=== PATIENT | male | born 1960 | race Caucasian/White ===

== ENCOUNTER 2019-11-15 03:54 | Inpatient (IN) | payer OTHER, SELFPAY ==
[2019-11-15] VITALS (21 sets, daily range): BP systolic 92–159; BP diastolic 57–90; PULSE 72–96; RESP 14–20; TEMP 36.3–37; O2SAT 96–99
--- NOTE | 2019-11-15 04:00 | DI.CT_ITS ---
EXAM: CT ABDOMEN PELVIS W CLINICAL HISTORY: right lower abdominal pain TECHNIQUE: Imaging Protocol: Axial computed tomography images with coronal and sagittal reformatted images were created and reviewed CONTRAST MATERIAL: Intravenous: Omnipaque 350 Contrast volume:100 mL Oral: No COMPARISON: No exams were available for comparison FINDINGS: ABDOMEN: Lung Bases: Normal where visualized. Liver: Normal density. There is an 8 mm hypodense lesion in the anterior segment of the right lobe of the liver. It is not definitely cystic. A follow-up hepatic ultrasound should be considered for fu rther evaluation. Portal, Superior Mesenteric, and Splenic Veins: Unremarkable. Gallbladder and Biliary Tract: No radiodense calculus or dilation. Pancreas: Normal density, no abnormal calcifications or inflammatory process. Spleen: Normal. Adrenals: No masses seen. Kidneys: Normal size, contour and axis. Nonobstructing stones seen in the lower pole of the left kidn ey. Tiny hypodensities in the right kidney. They are too small for further characterization but lik jayla reflect small cysts. Abdominal Aorta: Abdominal portion non-dilated. Atherosclerosis. Bowel: No obstruction or bowel wall thickening. There is an air-filled appendix in the right lower qu adrant. The distal appendix measures up to 6-7 mm in diameter and contains high density material whi ch may reflect appendicoliths. No periappendiceal inflammatory changes are seen. No abscess is iden tified. Peritoneal Cavity: No ascites, collection or mesenteric inflammatory response. Lymph Nodes: Within normal limits. Bones: Mild degenerative changes are present. Soft Tissues: Bilateral fat containing inguinal hernia. PELVIS: Bladder: Symmetric distention, no gross wall thickening. Reproductive Organs: Unremarkable as visualized. Lymph Nodes: Within normal limits. Bones: Degenerative changes are present. IMPRESSION: 1. Upper limits of normal in size of the appendix. High density material seen in the distal appendix suggesting appendicoliths. No definite associated inflammatory change or abscess is appreciated. P lease correlate clinically. 2. Nonobstructing left renal calculi. 3. 8 mm hypodense hepatic lesion. Hepatic ultrasound recommended for further evaluation. RADIATION DOSE DELIVERED: DATA REPOSITORY: All CT scans at this facility are submitted to the National Radiology Data Registry (NRDR) Dose Index Registry (DIR) with the [employer] (A[employer]). RADIATION OPTIMIZATION: All CT scans at this facility use at least one of these dose optimization te chniques: automated exposure control; mA and/or kV adjustment per patient size (includes targeted exa ms where dose is matched to clinical indication); or iterative reconstruction.
--- NOTE | 2019-11-15 04:01 | W.ED.GENAD ---
Discharge Plan Disposition Patient Disposition: [facility] INPATIENT Condition: Stable Discharge Details Chief Complaint: Abd Prob Clinical Impression: Acute appendicitis ED Provider: Corey Galindo Home Meds and New Rx's Prescriptions: No Action losartan 25 mg Tablet 25 mg PO DAILY RF: 0 ranitidine HCl 150 mg Capsule 150 mg PO DAILY RF: 0 Medical Decision Making 59 yo male with hx of htn and gerd and no prior abdominal surgeries comes in with cc of right lower abdominal pain starting about 3 hours ago. Has never had pain like this in the past and denies vomit, fevers, cough, testicle pain or dysuria. On exam has no upper abdominal tenderness but is tender in the right lower abdomen. Will obtain labs and imaging to eval for pancreatitis, appendicitis and diverticulitis among other pathology pt's labs unremarkable and CT shows appenicoliths in distal appendix with borderline calibery per vrad. He is still having significant tenderness in the rlq. [facility] and pt prefers this. Spoke with Dr. Joshi who accepts for admission Differential Diagnosis Differential Diagnosis: appendicitis diverticulitis, colitis Imaging Data Radiologic Study: Attestation: I personally reviewed and interpreted this imaging study as follows: Imaging: CT Scan Radiologist's impression: IMPRESSION: Question mineral versus appendicoliths in the distal appendix with borderline caliber. No definite surrounding inflammatory change. Close clinical correlation recommended Faint nonobstructing left renal calculi Small fat containing inguinal hernias without CT evidence for incarceration Lab Data Lab results reviewed: Yes I reviewed the patient's lab results. HPI General Mode of arrival: ambulatory. Date/Time Provider Initiated Documentation: 11/15/19 03:55. Limitations to Documentation: no limitations. Information obtained by: patient. History of Present Illness 59 year old M presents to the emergency department with the chief complaint of right lower abdominal pain, described as moderate and severe, with intensity rated at 8. Quality is described as sharp, Patient reports no radiation. Patient started experiencing this hour(s) (3) and it has been constant. No relieving factors improve symptom(s), No exacerbating factors reported . Patient notes no other symptoms.. Patient did receive the following treatments prior to arrival, none Related Data Home Medications Medication Instructions Recorded Confirmed losartan 25 mg PO DAILY 11/15/19 11/15/19 ranitidine HCl 150 mg PO DAILY 11/15/19 11/15/19 Allergies Allergy/AdvReac Type Severity Reaction Status Date / Time ketoconazole AdvReac Unverified 11/15/19 04:07 omeprazole AdvReac Unverified 11/15/19 04:06 Review of Systems All systems reviewed & are unremarkable except as noted in HPI and below Constitutional Constitutional: Denies chills and Denies fever(s) ENT Ears, Nose, Mouth, and Throat: Denies change in voice Cardiovascular Cardiovascular: Denies chest pain and Denies dyspnea Respiratory Respiratory: Denies cough and Denies dyspnea Gastrointestinal Gastrointestinal: Denies nausea and Denies vomiting Genitourinary Genitourinary: Denies dysuria Integumentary/Breasts Skin/Breast: Denies rash [facility] Medical History (Updated 11/15/19 @ 05:09 by Corey Galindo MD) Hypertension (Chronic) Social History Smoking/Tobacco Use Status: Never Alcohol Intake: current Alcohol Intake frequency: a few times a week Alcohol type: beer and hard liquor Substance use type: marijuana Do you feel safe at home: Yes Exam Const General: no acute distress Orientation: alert HENMT Head: normal to inspection Ears: external ears normal General nose exam: external nose normal Mouth: moist mucous membranes Eyes General: appearance normal, both eyes and all related structures Neck Neck: normal visual inspection Resp Effort & Inspection: normal respiratory effort and able to speak in complete sentences Cardio Rate: regular rate GI Palpation: soft and tender Skin General skin exam: no rashes or lesions noted Neuro General: patient alert and patient oriented x3 Extrem General: normal to inspection Psych Mental Status: mental status grossly normal
[2019-11-15] MEDS: Normal Saline 1,000 ML 1000 ML IV (04:11)
[2019-11-15 04:14] LABS: Abs Immature Grans 0.02 k/cumm (0.0-0.09); Absolute Basophil Count 0.02 k/cumm (0.0-0.2); Absolute Eosinophil Count 0.08 k/cumm (0.0-0.7); Absolute Lymphocyte Count 1.91 k/cumm (1.2-3.4); Absolute Monocyte Count 0.67 k/cumm (0.11-0.7); Absolute Neutrophil Count 5.03 k/cumm (1.2-6.7); Basophils % 0.3; HCT 47.7 % (40.0-50.0); HGB 16.2 g/dL (13.5-17.5); Immature Grans % 0.3 %; Lymphocytes % 24.7; Mean Corpuscular Hemoglobin 30.1 pg (27.0-33.0); Mean Corpuscular Volume 88.7 fL (80-95); Mean Platelet Volume 9.4 fL (8.0-11.0); Monocytes % 8.7; Platelet Count 269 x1000/uL (130-400); RBC 5.38 m/cumm (4.50-6.00); RBC Distribution Width 13.4 % (11.8-14.1); White Blood Cell Count 7.73 k/cumm (4.4-10.8)
[2019-11-15 04:18] LABS: Bilirubin Negative (Negative); Blood Trace-intact (Negative); Clarity Clear (Clear); Glucose Negative (Negative); Ketones Negative (Negative); Leukocyte Esterase Negative (Negative); Nitrite Negative (Negative); Specific Gravity >= 1.030 (1.005-1.025); Urobilinogen 0.2 EU/dL (Up TO 0.2); pH 5.5 (5-8)
[2019-11-15 04:29] LABS: Bacteria Rare HPF (Negative); C & S Indicated? No; Casts Negative LPF (Negative); Crystals Negative HPF (Negative); Epithelial Cells Rare HPF (Negative); Mucus Negative (Negative); WBC 0-2 HPF (0-5)
[2019-11-15 04:32] LABS: ALT 33 U/L (16-63); AST 16 U/L (15-37); Alkaline Phosphatase 73 U/L (46-116); Anion Gap 10.1 mmol/L (3-11); BUN 17 mg/dL (7-18); Bilirubin, Direct 0.08 mg/dL (0.00-0.20); Bilirubin, Total 0.3 mg/dL (0.2-1.0); CO2 25.9 mmol/L (21.0-32.0); CREATININE 1.05 mg/dL (0.70-1.30); Calcium 9.2 mg/dL (8.5-10.1); Chloride 105 mmol/L (98-107); Glucose 123 mg/dL (74-106); Lipase 122 U/L (73-393); Potassium 3.8 mmol/L (3.5-5.1); Sodium 141 mmol/L (136-145); Total Protein 8.2 g/dL (6.4-8.2)
[2019-11-15] MEDS: Omnipaque 350 MG/ML 100 ML BTL IJ (04:35)
[2019-11-15 04:37] LABS: INR 1.1 (0.9-1.1); PTT Activated 24.2 sec (21.0-31.4); Prothrombin Time 10.9 sec (9.3-11.0)
--- NOTE | 2019-11-15 04:46 | DI.VRAD_ITS ---
PROCEDURE INFORMATION: Exam: CT Abdomen And Pelvis With Contrast Exam date and time: 11/15/2019 4:01 AM Age: 59 years old Clinical indication: Localized; Right lower quadrant (rlq); Patient HX: Right lower abdominal pain TECHNIQUE: Imaging protocol: Computed tomography of the abdomen and pelvis with intravenous contrast. COMPARISON: No relevant prior studies available. FINDINGS: Liver: 8 mm hypodensity in the right lobe is not clearly cystic Gallbladder and bile ducts: Normal. No calcified stones. No ductal dilation. Pancreas: Normal. No ductal dilation. Spleen: Normal. No splenomegaly. Adrenals: Normal. No mass. Kidneys and ureters: Faint hypodensities in the right kidney are too small to characterize No hydronephrosis. Faint left renal calculi in the lower pole Stomach and bowel: Unremarkable. No obstruction. No mucosal thickening. Appendix: Air-filled appendix noted in the proximal and midportion. The distal appendix measures up to 6-7 mm with faint presumed appendicoliths versus mineral coronal image 51 and axial image 476. There is no surrounding inflammatory change Intraperitoneal space: Unremarkable. No free air. No significant fluid collection. Vasculature: Atherosclerosis. No abdominal aortic aneurysm. Lymph nodes: Unremarkable. No enlarged lymph nodes. Bladder: Unremarkable as visualized. Reproductive: Unremarkable as visualized. Bones/joints: Degenerative changes in the spine No acute fracture. Soft tissues: Small fat-containing inguinal hernias are noted. IMPRESSION: Question mineral versus appendicoliths in the distal appendix with borderline caliber. No definite surrounding inflammatory change. Close clinical correlation recommended Faint nonobstructing left renal calculi Small fat containing inguinal hernias without CT evidence for incarceration Dictated and Authenticated by: Daniel Nolasco MD. Ordering:SUPRIYA Nicole MD
[2019-11-15] MEDS: PIPERACILLIN/TAZO 4.5 GM in Normal Saline 100 ML IVPB (05:10)
[2019-11-15] MEDS: Normal Saline 1,000 ML 150 ML IV (07:29)
[2019-11-15] MEDS: Normal Saline Flush 10 ML SYR IVP (07:29)
--- NOTE | 2019-11-15 08:58 | W.PM.HP.N ---
Date of service: 11/15/19 Time of Service: 08:58 Assessment and Plan Assessment and plan (1) Acute appendicitis: Status: Acute Assessment and plan: A\\ 59 year old with RLQ pain, anorexia and CT scan with slight enlargement of appendix as well as appedicolith. Most likely has early appendicitis P\\ Laparoscopic Appendectomy Risks, benefits and complications have been reviewed. Complications include but are not limited to bleeding, infection, injury to adjacent bowel, abscess formation, staple line leak, inability to do the procedure laparoscopically and adverse reaction to the medications. Questions were entertained and answered to their satisfaction and they wished to proceed. No guarantees were given or implied. Qualifiers: Acute appendicitis type: with localized peritonitis Appendicitis gangrene presence: without gangrene Appendicitis perforation presence: without perforation Appendicitis abscess presence: without abscess Qualified Code(s): K35.30 - Acute appendicitis with localized peritonitis, without perforation or gangrene History of Present Illness History of Present Illness Chief Complaint: Abdominal pain Consults Consult date: 11/15/19 Requesting physician: Corey Galindo Narrative: 59 yo male with hx of htn and gerd and no prior abdominal surgeries come in last night to the ED complaining of right lower abdominal pain starting about 3 hours prior to arrival. Has never had pain like this in the past and denies vomit, fevers, cough, testicle pain or dysuria, or diarrhea. He has had no sick conatcts. Labs done in the ED were wnl. CT scan showed a fecolith in the appendix and slight dilatation. No inflammation noted. This morning patients pain is still located in the RLQ. It is starting to get worse again. He denies N/V Review of Systems Constitutional Constitutional: Denies fever(s), Denies headache(s), Reports poor appetite and Denies weakness Eyes Eyes: Denies change in vision ENT Ears, Nose, Mouth, and Throat: Denies change in voice, Denies dizziness, Denies headache(s) and Denies hoarseness Cardiovascular Cardiovascular: Denies chest pain, Denies chest pain at rest, Denies chest pain with activity, Denies irregular heart rhythm, Denies dyspnea and Denies dyspnea on exertion Respiratory Respiratory: Denies cough, Denies dyspnea and Denies dyspnea on exertion Gastrointestinal Gastrointestinal: Reports as per HPI, Denies dyspepsia and Denies heartburn Genitourinary Genitourinary: Denies oliguria and Denies difficulty urinating Musculoskeletal Musculoskeletal: Reports system reviewed and no additional complaints, except as documented Integumentary/Breasts Skin/Breast: Reports system reviewed and no additional complaints, except as documented Neurologic Neurologic: Denies dizziness, Denies headache(s) and Denies weakness Psychiatric Psychiatric: Reports system reviewed and no additional complaints, except as documented Endocrine Endocrine: Denies cold intolerance and Denies heat intolerance Hematologic/Lymphatic Hematologic/Lymphatic: Denies easy bleeding, Denies easy bruising and Denies lymphadenopathy [facility] Medical History (Updated 11/15/19 @ 09:05 by Naz Garcia MD) GERD (gastroesophageal reflux disease) (Chronic) Hypertension (Chronic) Social History (Updated 11/15/19 @ 09:02 by Naz Garcia MD) Smoking/Tobacco Use Status: Never Alcohol Intake: current Alcohol Intake frequency: a few times a week Alcohol type: beer and hard liquor Substance use type: marijuana Household members: none Housing: house Do you feel safe at home: Yes Meds Home Medications and Allergies Home Medications Medication Instructions Recorded Confirmed Type losartan 25 mg PO DAILY 11/15/19 11/15/19 History ranitidine HCl 150 mg PO DAILY 11/15/19 11/15/19 History Allergies Allergy/AdvReac Type Severity Reaction Status Date / Time ketoconazole AdvReac Unverified 11/15/19 04:07 omeprazole AdvReac Unverified 11/15/19 04:06 Exam Const General: cooperative and no acute distress Orientation: alert and oriented x3 HENMT Head: normocephalic and atraumatic Resp Effort & Inspection: normal respiratory effort Auscultation: clear to auscultation bilaterally Cardio Rate: regular rate Rhythm: regular rhythm Heart Sounds: no gallops, no murmurs and no rubs GI Inspection: normal to inspection Palpation: soft, no hepatosplenomegaly and tender in the RLQ (Guarding, no rebound) Auscultation: normal bowel sounds Extrem General: no clubbing, cyanosis or edema Results Labs Result diagrams: 11/15/19 04:05 11/15/19 04:05 Labs: Laboratory Results - last 24 hr 11/15/19 11/15/19 11/15/19 04:05 04:05 04:05 WBC 7.73 RBC 5.38 Hgb 16.2 Hct 47.7 MCV 88.7 MCH 30.1 MCHC 34.0 RDW 13.4 Plt Count 269 MPV 9.4 Immature Gran % 0.3 Neutrophils % 65.0 Lymphocytes % 24.7 Monocytes % 8.7 Eosinophils % 1.0 Basophils % 0.3 Absolute Neutrophils 5.03 Absolute Lymphocytes 1.91 Absolute Monocytes 0.67 Absolute Eosinophils 0.08 Absolute Basophils 0.02 PT 10.9 INR 1.1 APTT 24.2 Sodium 141 Potassium 3.8 Chloride 105 Carbon Dioxide 25.9 Anion Gap 10.1 BUN 17 Creatinine 1.05 Estimated GFR/1.73 m2 >= 60.00 Glucose 123 H Calcium 9.2 Magnesium 2.0 Total Bilirubin 0.3 Conjugated Bilirubin 0.08 AST 16 ALT 33 Alkaline Phosphatase 73 Total Protein 8.2 Albumin 4.0 Lipase 122 Urine Color Urine Clarity Urine pH Ur Specific [place] Urine Protein Urine Ketones Urine Blood Urine Nitrite Urine Bilirubin Urine Urobilinogen Ur Leukocyte Esterase Urine RBC Urine WBC Ur Epithelial Cells Urine Crystals Urine Bacteria Urine Casts Urine Mucus Ur Culture Indicated? Urine Glucose 11/15/19 04:10 WBC RBC Hgb Hct MCV MCH MCHC RDW Plt Count MPV Immature Gran % Neutrophils % Lymphocytes % Monocytes % Eosinophils % Basophils % Absolute Neutrophils Absolute Lymphocytes Absolute Monocytes Absolute Eosinophils Absolute Basophils PT INR APTT Sodium Potassium Chloride Carbon Dioxide Anion Gap BUN Creatinine Estimated GFR/1.73 m2 Glucose Calcium Magnesium Total Bilirubin Conjugated Bilirubin AST ALT Alkaline Phosphatase Total Protein Albumin Lipase Urine Color Yellow Urine Clarity Clear Urine pH 5.5 Ur Specific [place] >= 1.030 H Urine Protein Negative Urine Ketones Negative Urine Blood Trace-intact H Urine Nitrite Negative Urine Bilirubin Negative Urine Urobilinogen 0.2 Ur Leukocyte Esterase Negative Urine RBC 3-5 H Urine WBC 0-2 Ur Epithelial Cells Rare Urine Crystals Negative Urine Bacteria Rare Urine Casts Negative Urine Mucus Negative Ur Culture Indicated? No Urine Glucose Negative Last Vital Signs Temp 98.4 F 11/15/19 07:29 Pulse 72 11/15/19 07:29 Resp 17 11/15/19 07:29 BP 110/65 11/15/19 07:29 Pulse Ox 96 11/15/19 07:29 COVID-19 Screening Traveled to [place] from one of the affected countries or regions?: NO Recent travel in the [place] within the last 8 weeks?: No Recent out of the country travel within the last 8 weeks?: No Exposure or possible exposure to illness during travel?: No Had IN PERSON contact w/suspected or confirmed C-19 person: No Have you had the following symptoms in the past few days?: No Symptoms noted since travel?: No Symptoms
--- NOTE | 2019-11-15 09:01 | PHA.ADMREV ---
Pharmacy Clinical Review - Admission Clinical Review (Last Updated 11/15/19 @ 04:12 by Dior Clemons) Acute appendicitis (Acute) ketoconazole Adverse Reaction (Unverified 11/15/19 04:07) omeprazole Adverse Reaction (Unverified 11/15/19 04:06) Height 5 ft 11 in Weight 86.183 kg APPENDICITIS vs Diverticulitis, colitis - Renal Dosing Renal Dosing: BUN 17 mg/dL (7-18) 11/15/19 04:05 Creatinine 1.05 mg/dL (0.70-1.30) 11/15/19 04:05 Medications needing adjustments: Reviewed (CrCl~78ml/min-no renal meds) - Anticoagulation Anticoagulation: Hgb 16.2 g/dL (13.5-17.5) 11/15/19 04:05 Hct 47.7 % (40.0-50.0) 11/15/19 04:05 Plt Count 269 x1000/uL (130-400) 11/15/19 04:05 INR 1.1 (0.9-1.1) 11/15/19 04:05 Creatinine 1.05 mg/dL (0.70-1.30) 11/15/19 04:05 DVT Prohphylaxis: N/A (? not sure if going to the OR) Therapeutic Anticoagulation: N/A - Opiate Usage Evaluate Pain Scale/Pains Meds: Reviewed (MS IVP-not using) Scheduled Bowel Reg ordered if on Opiates?: No (NPO-just IV meds & fluids) - Relevant Labs Sodium 141 mmol/L (136-145) 11/15/19 04:05 Potassium 3.8 mmol/L (3.5-5.1) 11/15/19 04:05 Chloride 105 mmol/L (98-107) 11/15/19 04:05 Magnesium 2.0 mg/dL (1.8-2.4) 11/15/19 04:05 Electrolytes, C-Reactive P, ESR: Reviewed (nothing out of range) - Antimicrobial Stewardship Antibiotic appropriateness: Reviewed (Zosyn 4.5gram 1x in ED) Culture review/Resistance: N/A - DM Control DM Control: Glucose 123 mg/dL (74-106) H 11/15/19 04:05 Insulin Dosing: N/A - Heart Failure/NH EF%, PETER's, B-Blockers, Diuretics: N/A - BP Control BP Control: Blood Pressure 110/65 Blood Pressure 132/88 Blood Pressure 132/88 Blood Pressure 125/81 Blood Pressure 125/81 Blood Pressure 119/75 Blood Pressure 130/81 Blood Pressure 133/85 Blood Pressure 159/90 If elevated: N/A - QTc Review If Elevated: N/A - IV to PO Switch IV Medications: Reviewed (IV Fluids, MS IVP) - Home Meds Home Med List reviewed: Reviewed (Losartan/Ranitidine) - Current meds Current Medication Order Review: Reviewed - Comments Comments/Follow Ups: Assume may just stay for observation, Surgeon has not filed an H&P or progress note at this time, was admitted early childhood specialist
[2019-11-15] MEDS: Bupivacaine LIPOSOME/PF 133 MG/10 ML VIAL IJ (10:26)
[2019-11-15] MEDS: Bupivacaine 0.25% Pres-Free 10 ML VIAL (10:26)
--- NOTE | 2019-11-15 10:50 | APP_PTH ---
PATIENT: PRINCE PRINGLE LOC: U#:[id number] AGE/SX: 59/M ROOM: RE11/15/[address]: Naz Garcia MD : 1960 BED: A DIS: 11/15/2019 SPEC #: [id number] RECD: 11/16/19 12:23 STATUS: SOUT REQ #: [id number] AMANDA: 11/15/19 10:[address]: Naz Garcia DEPT: Surgical Specimen RECD BY: Margarita Fulton ENTERED: 11/16/19 12:23 SP TYPE: Appendix OTHR DR: Unknown,Unknown Tissues: 1 - APPENDIX NOT INCIDENTAL Procedures: GROSS AND MICRO LEVEL 3 Comments: [id number]
--- NOTE | 2019-11-15 11:17 | W.PM.OP ---
Date of service: 11/15/19 Time of Service: 11:17 Operative Note Operative Note DATE OF PROCEDURE: 11/15/19 PRE-OP DIAGNOSIS: Acute appendicitis POST-OP DIAGNOSIS: same PROCEDURE: Laparoscopic Appendectomy SURGEON: Naz Garcia PLANT PROTECTION OFFICER: Lise Tomas ANESTHESIA: GETA (ASA 2/ Noemy John CRNA) and local (exparel 10cc mixed with 10 cc of 0.25% Bupivocaine ) ESTIMATED BLOOD LOSS: 5 PATHOLOGY: other (Appendix) COMPLICATIONS: None Patient was transported to: floor Patient's condition: stable Indications: Mr. Carr is a 59 year old male with RLQ abdominal pain, anorexia and CT scan suggestive of early appendicitis. Laparoscopic Appendectomy was recommended. Risks, benefits and complications have been reviewed. Complications include but are not limited to bleeding, infection, injury to adjacent bowel, abscess formation, staple line leak, inability to do the procedure laparoscopically and adverse reaction to the medications. Questions were entertained and answered to their satisfaction and they wished to proceed. No guarantees were given or implied. Findings: Fecolith in the tip of the appendix. Otherwise looked normal. Normal small bowel and large bowel. Normal Gallbladder and liver Procedure Description: After informed consent was obtained the patient was taken to the operating room, placed in the supine position,and monitors were applied. A timeout was done. The patient was then placed under general anesthesia and intubated without any difficulty. Next a Woodruff catheter was placed in a standard surgical fashion. At this point the abdomen was prepped and draped in a sterile surgical fashion with chlorhexidine. A second timeout was done and the patient's name, date of , operation to be performed, DVT prophylaxis, antibiotic given were reviewed, and fire risk was assessed. The exparel/bupivocaine mixture was injected into the dermis just above the umbilicus. A small 5 mm incision was made with an 11 blade. The skin was grasped with penetrating towel clamps on either side of the incision and then using a Visiport a 5 mm port was placed under direct visualization into the abdomen. The abdomen was insufflated. Local anesthetic was then injected just above the pubic symphysis in the midline. A small 5 mm incision was made with an 11 blade and another 5 mm port was placed under direct visualization into the abdomen. The local anesthetic was then injected in the left lower quadrant area and a 11 mm incision was made with an 11 blade. A 11 mm port was then placed under direct visualization. The patient's bed was then turned to the left head down allowing me to sweep of the small bowel out of the right lower quadrant. The cecum was identified and gently grasped and the appendix was identified. The appendix was noted to be very long. The tip looked swollen but it was not particularly inflamed. The cecum was noted to be redundant and in the pelvis. The appendix was grasped at the neck and pulled up slightly allowing me to visualize the junction with the cecum. Using the Myriam dissector a small window was made in the meso-appendix at the junction with the cecum. Using a laparoscopic straight stapler the appendix was transected at the junction with the cecum. Using the laparoscopic LigaSure the meso-appendix was slowly transected. Once the meso-appendix was transected, the appendix was placed into an Endo Catch bag and removed through the 11 mm port site. The port was placed back into the abdomen and the staple line was identified. No bleeding was noted. The transected meso-appendix was identified and no bleeding was noted. The liver was inspected and looked normal. The dome of the Gallbladder was identified and looked normal. No adhesions or inflammation was noted. The large bowel was normal. The small bowel was grossly normal. The staple line was inspected one more time and no bleeding was identified at this point. A5 mm port was then removed under direct visualization and no bleeding was noted from the fascia. The insufflation was stopped and the 11 mm port was removed. No bleeding was noted from the fascia. The last 5 mm port was removed and the abdomen was completely deflated. The 11 mm port site fascia was closed with a 0 Vicryl [id number] suture. The dermis on the 3 incisions was then closed with 4-0 Vicryl. The skin was cleaned and dried and skin affix was applied. The patient was woken up extubated and taken back to recovery room in stable condition. There were no immediate complications. Sponge instrument needle counts were correct at the end of the case x2. COVID-19 precautions with appropriate PPE were used throughout the case.
--- NOTE | 2019-11-15 13:52 | DSE_ITS ---
Date of service: 11/15/19 Time of Service: 13:53 DS: Diagnosis Discharge Diagnosis (1) Acute appendicitis: Status: Acute Discharge Plan Disposition Patient Disposition: HOME Condition: Stable Discharge Details Chief Complaint: Abd Prob Clinical Impression: Acute appendicitis Reason For Visit: APPENDICITIS Admit Date/Time: 11/15/19 05:02 Admit Provider: Naz Garcia Attending Provider: Naz Garcia Primary Care Provider: Unknown,Unknown ED Provider: Corey Galindo Hospital Course Hospital Course: Mr. Guevara is a pleasant 59 year old male admitted with RLQ pain. After hydration and bowel rest for a few hours he had no improvement in his pain. It was starting to worsen again. CT scan was reviewed. His appendix was slightly dilated and there was an appendicolith. There was no stranding. He had anorexia as well. No other acute findings on his CT scan. Due to his pain and the fact there was an appendicolith Laparoscopic appendectomy was recommended. I did tell the patient that it could be normal. If it looked normal I would still remove it. He underwent Laparoscopic appendectomy without complication. 2 hours after surgery he felt well. He had eaten a regular lunch without increased pain, N or V. His pain was at 3/10. it was 5/10 prior to surgery Patient was ambulated without increase in pain He was discharged home with follow up appointment Home Meds and New Rx's Prescriptions: New famotidine 20 mg Tablet 20 mg PO DAILY Qty: 90 RF: 0 acetaminophen [Tylenol] 325 mg Tablet 650 mg PO Q6H PRN PRN (Reason: fever or pain) Qty: 30 RF: 0 ibuprofen [IBU] 600 mg Tablet 600 mg PO QID PRN PRN (Reason: fever or pain) Qty: 30 RF: 0 Continued losartan 25 mg Tablet 25 mg PO DAILY RF: 0 Discontinued ranitidine HCl 150 mg Capsule 150 mg PO DAILY RF: 0 Discharge Instructions Instructions: Laparoscopic Appendectomy (DC) Additional Instructions: Activity at Home after surgery: 1. Make sure you walk outside at least 4 times per day 2. You should be able to climb a flight of stairs 3. No driving while in pain or taking pain medications 4. No strenuous activity or heavy lifting for 2 weeks (laparoscopic surgery) Diet, Nutrition, & wound healin. Avoid alcohol until after you are recovered from your surgery 2. Make sure to eat plenty of lean protein (meat, fish, eggs, cottage cheese, beans) 3. Eat a variety of fruits and vegetables. Eat plenty of high fiber foods to avoid constipation. 4. Drink plenty of liquids to stay hydrated and avoid constipation Pain Medications: 1. Alternate Tylenol 650mg and Ibuprofen 600 mg every 3 hours 2. If a narcotic has been prescribed take as directed only for breakthrough pain For Constipation: 1. Take Milk of Magnesia or MiraLax as needed for constipation Other: 1. You may shower daily. Do not scrub the incisions 2. Do not soak the incisions for 1 week 3. You may alternate ice and heat as needed for pain and swelling Wound Care: 1. Keep the incisions clean and dry Please call our office if you develop: 1. Fevers >101.5 2. Nausea or Vomiting 3. Worsening pain 4. Redness and thick discharge from the wounds If after hours please call the Hospital at and ask to speak to the on-call surgeon Referrals: Naz Garcia MD [ [facility] STAFF PHYSICIAN] - 12/04/19 8:30 am Activity:: No lifting, pulling or pushing >20 lb x 2 weeks Equipment/Supplies:: No Equipment Needed Diet:: As Tolerated DS: Summary Status at Discharge Functional status at discharge: independent ambulation Overall status at discharge: patient is back to baseline Mental Status: mental status grossly normal Speech and Movement: speech and movement normal Mood: congruent mood Affect: normal affect Time Spent with Patient providing and/or coordinating discharge services: Less than 30 minutes Exam Resp Effort & Inspection: normal respiratory effort Auscultation: clear to auscultation bilaterally Cardio Rate: regular rate Rhythm: regular rhythm GI Inspection: normal to inspection and incision (c/d/i) Palpation: soft and tender (appropriate around incisions) Auscultation: normal bowel sounds Psych Mental Status: mental status grossly normal Speech and Movement: speech and movement normal Mood: congruent mood Affect: normal affect DS: Data Vitals/I&O Vitals and I&O: Vital Signs Temperature 97.3 F L 11/15/19 11:54 Temperature Source Tympanic 11/15/19 11:54 Pulse 80 11/15/19 11:54 Pulse Rhythm Regular 11/15/19 05:45 Respiratory Rate 14 11/15/19 11:54 Respiratory Effort Non-Labored 11/15/19 13:09 Respiratory Depth Normal 11/15/19 13:09 Respiratory Pattern Normal 11/15/19 13:09 Blood Pressure 108/68 11/15/19 11:54 Blood Pressure Mean 90 11/15/19 05:30 Pulse Oximetry 97 11/15/19 11:54 Respiratory End-tidal CO2 41 11/15/19 11:36 Oxygen Delivery Method Room Air 11/15/19 11:54 Oxygen Flow Rate 0 11/15/19 11:54 Pain Level 4 11/15/19 11:41 Comment 11/15/19 05:45 Intake & Output 11/14/19 11/15/19 11/15/19 23:59 11:59 23:59 Intake Total 1900 / 2150 250 / 2150 Output Total 200 / 200 Balance 1700 / 1950 250 / 1950 Weight 190 lb Intake: IV 1900 / 1900 Oral 250 / 250 Output: Urine 200 / 200 Other: Urine Color Yellow Urine Appearance Clear Emesis Description None Data Completed and Pending Labs on day of discharge: Labs from last 24 hours 11/15/19 11/15/19 11/15/19 04:10 04:05 04:05 WBC 7.73 RBC 5.38 Hgb 16.2 Hct 47.7 MCV 88.7 MCH 30.1 MCHC 34.0 RDW 13.4 Plt Count 269 MPV 9.4 Immature Gran % 0.3 Neutrophils % 65.0 Lymphocytes % 24.7 Monocytes % 8.7 Eosinophils % 1.0 Basophils % 0.3 Absolute Neutrophils 5.03 Absolute Lymphocytes 1.91 Absolute Monocytes 0.67 Absolute Eosinophils 0.08 Absolute Basophils 0.02 PT 10.9 INR 1.1 APTT 24.2 Sodium Potassium Chloride Carbon Dioxide Anion Gap BUN Creatinine Estimated GFR/1.73 m2 Glucose Calcium Magnesium Total Bilirubin Conjugated Bilirubin AST ALT Alkaline Phosphatase Total Protein Albumin Lipase Urine Color Yellow Urine Clarity Clear Urine pH 5.5 Ur Specific [place] >= 1.030 H Urine Protein Negative Urine Ketones Negative Urine Blood Trace-intact H Urine Nitrite Negative Urine Bilirubin Negative Urine Urobilinogen 0.2 Ur Leukocyte Esterase Negative Urine RBC 3-5 H Urine WBC 0-2 Ur Epithelial Cells Rare Urine Crystals Negative Urine Bacteria Rare Urine Casts Negative Urine Mucus Negative Ur Culture Indicated? No Urine Glucose Negative 11/15/19 04:05 WBC RBC Hgb Hct MCV MCH MCHC RDW Plt Count MPV Immature Gran % Neutrophils % Lymphocytes % Monocytes % Eosinophils % Basophils % Absolute Neutrophils Absolute Lymphocytes Absolute Monocytes Absolute Eosinophils Absolute Basophils PT INR APTT Sodium 141 Potassium 3.8 Chloride 105 Carbon Dioxide 25.9 Anion Gap 10.1 BUN 17 Creatinine 1.05 Estimated GFR/1.73 m2 >= 60.00 Glucose 123 H Calcium 9.2 Magnesium 2.0 Total Bilirubin 0.3 Conjugated Bilirubin 0.08 AST 16 ALT 33 Alkaline Phosphatase 73 Total Protein 8.2 Albumin 4.0 Lipase 122 Urine Color Urine Clarity Urine pH Ur Specific [place] Urine Protein Urine Ketones Urine Blood Urine Nitrite Urine Bilirubin Urine Urobilinogen Ur Leukocyte Esterase Urine RBC Urine WBC Ur Epithelial Cells Urine Crystals Urine Bacteria Urine Casts Urine Mucus Ur Culture Indicated? Urine Glucose PFS Medical History (Updated 11/15/19 @ 09:05 by Naz Garcia MD) GERD (gastroesophageal reflux disease) (Chronic) Hypertension (Chronic) Surgical History (Updated 11/15/19 @ 13:54 by Naz Garcia MD) S/P laparoscopic appendectomy (Acute ~11/15/19) Social History (Updated 11/15/19 @ 09:02 by Naz Garcia MD) Smoking/Tobacco Use Status: Never Alcohol Intake: current Alcohol Intake frequency: a few times a week Alcohol type: beer and hard liquor Substance use type: marijuana Household members: none Housing: house Do you feel safe at home: Yes
[2019-11-15] MEDS: Losartan 25 MG TAB PO (14:11)
[2019-11-15] MEDS: Famotidine 20 MG TAB PO (14:12)
--- NOTE | 2019-11-15 14:27 | PDOC.CMIN ---
- If Service Date Differs Date of service: 11/15/19 Time of Service: 14:27 Care Management Initial Assess REASON FOR HOSPITALIZATION:: Appendicitis PAST MEDICAL HISTORY/PAST SURGICAL HISTORY:: Medical History (Updated 11/15/19 @ 09:05 by Naz Garcia MD). GERD (gastroesophageal reflux disease) (Chronic). Hypertension (Chronic) PREVIOUS FUNCTIONAL STATUS/SOCIAL/FAMILY SUPPORTS:: Madhav lives alone in [facility]. 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 He identifies his sister, Karely, as his closest support. He is independent at baseline. CURRENT FUNCTIONAL STATUS:: Madhav was sitting up in bed, reading a book when CM met with him. He reported that his surgery went well and that he will be able to return home tonight. He is agreeable to this plan. CM will continue to follow. ADVANCE DIRECTIVES:: On file, Karely listed as agent. Has patient been provided with information about the portal?: No Did the patient sign up for the portal?: No CODE STATUS:: Full Code INSURANCE COVERAGE / FINANCIAL ISSUES:: [id number] ('s Choice) CURRENT HOME/COMMUNITY SERVICES/EQUIPMENT:: No current services or equipment. PRIMARY CARE PHYSICIAN:: ISH Albarran [facility] POTENTIAL DISCHARGE NEEDS:: Further evaluations for needs, follow up appointments PATIENT/FAMILY EDUCATION NEEDS:: Review discharge instructions regarding activity levels and medications, discussion of self care needs including ask me three ANTICIPATED BARRIERS TO DISCHARGE:: None identified at this time. TRANSPORTATION:: Madhav will drive himself home when ready via private vehicle. PLAN:: Anticipate Madhav will return home when medically cleared. He will drive himself home via private vehicle. He will follow up with his PCP, as recommended. CM will continue to follow.
--- NOTE | 2019-11-15 14:42 | PDOC.CMDIS ---
- If Service Date Differs Date of service: 11/15/19 Time of Service: 14:42 LACE Index Scoring Tool - Questions: Length of Stay (in days): 1 Acuity (Admit via E.D.?): Yes E.D. Visits: 1 - Answers: Total Score: 5 Risk of Readmission: Low Risk Care Management Discharge Reason for Hospitalization: Appendicitis Discharge Plan: Madhav will return home with no additional services at this time. He will follow up with Surgery and his PCP, as recommended. He is agreeable to the plan. He will drive himself home via private vehicle. Patient/Family Education Needs: Review discharge instructions regarding activity levels and medications, discussion of self care needs including ask me three
== END 2019-11-15 15:58 | disposition home or self-care (01) | DRG 343 ==
LOC: ER 05:35 → MS 06:07
PROVIDERS: Admitting Provider Surgery; Emergency Provider Emergency Medicine; Visit Provider Surgery
PROC: 0DTJ4ZZ Resection of Appendix, Percutaneous Endoscopic Approach (ICD-10-PCS; CPT 44970; principal; 2019-11-15 08:55)
DX: K35.890 Other acute appendicitis without perforation or gangrene (principal); K38.1 Appendicular concretions; I10 Essential (primary) hypertension; K21.9 Gastro-esophageal reflux disease without esophagitis
CPT/HCPCS: 44970; 80053; 83690; 96361; 96365; 96375; 99222; 99285; NC; 74177; 81003; 81015; 82248; 83735; 85025; 85610; 85730; 88304; J1885; J2001; J2405; J2543; J2704; J3010; J3490

== ENCOUNTER 2020-06-05 13:46 | Emergency (ER) | payer OTHER, SELFPAY ==
--- NOTE | 2020-06-05 13:45 | RT.EKG_ITS ---
APPROVED REPORT Exam: Resting ECG Patient Location: E HR:82 bpm ECG Measurements Heart Rate 82 AXIS NM 166 P 68 QRSd 88 QRS 52 QT 364 T 11 QTc 427 Conclusion Sinus rhythm...normal P axis, V-rate 60- 99
[2020-06-05 13:52] VITALS: BP 155/90; PULSE 86; RESP 20; TEMP 36.4; O2SAT 99
[2020-06-05 14:05] VITALS: RESP 20
--- NOTE | 2020-06-05 14:10 | W.ED.GENAD ---
Discharge Plan Disposition Patient Disposition: HOME Condition: Stable Discharge Details Clinical Impression: Vertigo Primary Care Provider: Unknown,Unknown ED Provider: Corey Galindo Home Meds and New Rx's Prescriptions: New meclizine 25 mg tablet 25 mg PO TID PRN (Reason: dizziness) Qty: 30 RF: 0 No Action losartan 25 mg Tablet 25 mg PO DAILY RF: 0 famotidine 20 mg Tablet 20 mg PO DAILY Qty: 90 RF: 0 acetaminophen [Tylenol] 325 mg Tablet 650 mg PO Q6H PRN PRN (Reason: fever or pain) Qty: 30 RF: 0 ibuprofen [IBU] 600 mg Tablet 600 mg PO QID PRN PRN (Reason: fever or pain) Qty: 30 RF: 0 Cholestyramine Light 4 gram Powder In Packet 4 g PO DAILY RF: 0 Discharge Instructions Instructions: Vertigo (ED) Additional Instructions: If symptoms persistent intermittently follow up with your primary care provider if you feel more ill, have dizziness that doesn't go away or weakness return to the emergency department Medical Decision Making 60 yo male with hx of htn, gerd, hiatal hernia, who comes in with cc of 2 minutes of sensation of the room spinning that resolved. HE states he was bending over to plug in a radio and the room spinning sensation started. He did not fall or hit his head, no chest pain/pressure, dyspnea, abdominal pain, n/v. He currently is asymptomatic. Has no focal motor or sensation deficits and CN II-XII are intact. I suspect given mechanism and brief perior of time this was peripheral vertigo and more specifically bppv. Has no findings to suggest central vertigo and given asymptomatic now do not feel any testing indicated. Will provide meclizine in case this recurs and return precautions given Differential Diagnosis Differential Diagnosis: bppv, labrynthitis, vertigo HPI General Mode of arrival: ambulatory. Date/Time Provider Initiated Documentation: 06/05/20 13:50. Limitations to Documentation: no limitations. Information obtained by: patient. History of Present Illness 60 year old M presents to the emergency department with the chief complaint of dizzy, described as moderate, Patient started experiencing this hour(s) (1) and it has been now resolved. Patient notes no other symptoms.. Patient did receive the following treatments prior to arrival, none Related Data Home Medications Medication Instructions Recorded Confirmed acetaminophen [Tylenol] 650 mg PO Q6H PRN PRN #30 tab 11/15/19 06/05/20 famotidine 20 mg PO DAILY #90 tab 11/15/19 06/05/20 ibuprofen [IBU] 600 mg PO QID PRN PRN #30 tab 11/15/19 06/05/20 losartan 25 mg PO DAILY 11/15/19 06/05/20 cholestyramine-aspartame 4 g PO DAILY 06/05/20 06/05/20 [Cholestyramine Light] meclizine 25 mg PO TID PRN #30 tab 06/05/20 Previous Rx's Medication Instructions Recorded acetaminophen [Tylenol] 650 mg PO Q6H PRN PRN #30 tab 11/15/19 famotidine 20 mg PO DAILY #90 tab 11/15/19 ibuprofen [IBU] 600 mg PO QID PRN PRN #30 tab 11/15/19 meclizine 25 mg PO TID PRN #30 tab 06/05/20 Allergies Allergy/AdvReac Type Severity Reaction Status Date / Time ketoconazole AdvReac Unverified 06/05/20 14:09 omeprazole AdvReac Unverified 06/05/20 14:09 General Stated Complaint: Dizzy/Sync MJ: 3 Review of Systems All systems reviewed & are unremarkable except as noted in HPI and below Constitutional Constitutional: Denies chills, Denies fever(s) and Denies weakness Cardiovascular Cardiovascular: Denies chest pain and Denies dyspnea Respiratory Respiratory: Denies cough and Denies dyspnea Gastrointestinal Gastrointestinal: Denies abdominal pain, Denies nausea and Denies vomiting Musculoskeletal Musculoskeletal: Denies joint swelling Neurologic Neurologic: Denies weakness Psychiatric Psychiatric: Denies depression [facility] Medical History (Updated 06/05/20 @ 14:11 by Corey Galindo MD) GERD (gastroesophageal reflux disease) Hypertension Surgical History (Updated 11/15/19 @ 13:54 by Naz Garcia MD) S/P laparoscopic appendectomy (~11/15/19) Social History (Updated 11/15/19 @ 09:02 by Naz Garcia MD) Smoking/Tobacco Use Status: Never Alcohol Intake: current Alcohol Intake frequency: a few times a week Alcohol type: beer and hard liquor Drug use: Daily Substance use type: marijuana Household members: none Housing: house Do you feel safe at home: Yes Exam Const General: no acute distress Orientation: alert [facility] Head: normal to inspection Ears: external ears normal General nose exam: external nose normal Mouth: moist mucous membranes Eyes General: appearance normal, both eyes and all related structures Neck Neck: normal visual inspection Resp Effort & Inspection: normal respiratory effort and able to speak in complete sentences Cardio Rate: regular rate Skin General skin exam: no rashes or lesions noted Neuro General: patient alert and patient oriented x3 Extrem General: normal to inspection Psych Mental Status: mental status grossly normal Course Vital Signs Vital signs: Vital Signs Temperature 36.4 C L 06/05/20 13:52 Pulse 86 06/05/20 13:52 Respiratory Rate 20 06/05/20 13:52 Blood Pressure 155/90 H 06/05/20 13:52 Pulse Oximetry 99 06/05/20 13:52 Temperature 36.4 C L 06/05/20 13:52 Temperature Source Skin 06/05/20 13:52 Pulse 86 06/05/20 13:52 Respiratory Rate 20 06/05/20 14:05 Respiratory Effort Non-Labored 06/05/20 14:05 Respiratory Depth Normal 06/05/20 14:05 Respiratory Pattern Normal 06/05/20 14:05 Blood Pressure 155/90 H 06/05/20 13:52 Blood Pressure Position Sitting 06/05/20 13:52 Pulse Oximetry 99 06/05/20 13:52 Oxygen Delivery Method Room Air 06/05/20 13:52 Oxygen Flow Rate 0 06/05/20 13:52
== END 2020-06-05 14:20 | disposition home or self-care (01) ==
LOC: ER 14:42
PROVIDERS: Emergency Provider Emergency Medicine
DX: R42 Dizziness and giddiness (principal); I10 Essential (primary) hypertension
CPT/HCPCS: 93005; 99283; 93010